=== PATIENT | male | born 1935 | race Caucasian/White ===

== ENCOUNTER 2018-01-14 12:20 | Observation (INO) | payer OTHER ==
[2018-01-14] MEDS ORDERED: levOFLOXACIN 500 MG/DEXTROSE 100 ML IV ONE (12:39)
[2018-01-14] MEDS ORDERED: LR 1,000 ML IV ONE (12:40)
[2018-01-14] MEDS ORDERED: LIDOCAINE 1% 2 ML INJ ID PRN (12:40)
--- NOTE | 2018-01-14 13:00 | PDHPUP ---
History & Physical Update H&P update statement: This history and physical update is based on an assessment of the patient which was completed after admission or registration (within 24 hours), but prior to the surgery/procedure. H&P update: no change in patient's condition since H&P completed
[2018-01-14] MEDS ORDERED: MIDAZOLAM 2 MG/2 ML VIAL IVP ONE (13:25)
--- NOTE | 2018-01-14 13:25 | PDANEPAE ---
<NolanKristin - Last Filed: 01/14/18 13:22> ANE History of Present Illness bladder masses, TURBT ANE Past Medical History - Cardiovascular History Hx Hypertension: Yes Hx Arrhythmias: Yes Hx Chest Pain: Yes Hx Coronary Artery / Peripheral Vascular Disease: Yes Hx CHF / Valvular Disease: No Hx Palpitations: No Cardiovascular History Comment: PPM for SSS. ascending aortic aneurysm - Pulmonary History Hx COPD: No Hx Asthma/Reactive Airway Disease: No Hx Recent Upper Respiratory Infection: No Hx Oxygen in Use at Home: No Hx Sleep Apnea: No Sleep Apnea Screening Result - Last Documented: Positive Pulmonary History Comment: ISABELLE triggers - Neurologic History Hx Cerebrovascular Accident: No Hx Seizures: No Hx Dementia: No - Endocrine History Hx Diabetes: No - Renal History Hx Renal Disorders: Yes Renal History Comment: BPH with obstruction - Liver History Hx Hepatic Disorders: No - Neurological & Psychiatric Hx Hx Neurological and Psychiatric Disorders: No - Cancer History Hx Cancer: Yes Cancer History Comment: MOHS procedure for basal cell spots - Congenital Disorder History Hx Congenital Disorders: No - GI History Hx Gastrointestinal Disorders: Yes Gastrointestinal History Comment: GERD - Other Health History Other Health History: wears glasses - Chronic Pain History Chronic Pain: No - Surgical History Prior Surgeries: left knee scope 1990. rectal abcess repair 1997. TURP 1998, 2007. MOHS surgery on face 1999. cardiac stent 2002, 2011. colonoscopy 2004, 2009. lap inguinal hernial repair 2012. bilateral cataract surgery 2016. pacemaker placement 2017 ANE Review of Systems Review of Systems: - Exercise capacity METS (RN): 4 METS - Pacemaker Pacemaker Type: Permanent Pacer/Defib Pacemaker [employer] Agent: [employer] Pacemaker Model: Assurity MRI Pacemaker Mode: DDDR Pacemaker Set Rate: 60 Date Pacemaker Last Checked: 10/21/2017 ANE Patient History - Allergies Allergies/Adverse Reactions: No Known Allergies Allergy (Verified 01/14/18 13:00) - Home Medications Home Medications: Aspirin [Aspirin 81mg (*)] 81 mg PO DAILY 01/08/18 [Last Taken 01/13/18] Atorvastatin Calcium [Lipitor 40 mg (*)] 80 mg PO HS 01/08/18 [Last Taken ] Carvedilol [Coreg (*)] 12.5 mg PO BIDMEAL 01/08/18 [Last Taken 01/13/18] Cetirizine [ZyrTEC 10 mg (*)] 10 mg PO DAILY PRN 01/08/18 [Last Taken 01/13/18] Fluticasone Nasal [Flonase Nasal [place] (RX)] 2 sprays NASAL DAILY 01/08/18 [ Last Taken Unknown] Losartan Potassium [Cozaar 25 mg (*)] 25 mg PO DAILY 01/08/18 [Last Taken ] Pantoprazole Sodium [Protonix 40mg (*)] 40 mg PO DAILY 01/08/18 [Last Taken ] Pregabalin [Lyrica 75mg (*)] 75 mg PO DAILY 01/08/18 [Last Taken 01/13/18] Ranitidine HCl [Zantac] 150 mg PO DAILY18 01/08/18 [Last Taken 01/13/18] Rivaroxaban [Xarelto 10mg (*)] 20 mg PO DAILY18 01/08/18 [Last Taken 01/10/18] Sildenafil Citrate [Viagra 50 MG (*)] 100 mg PO AD 01/08/18 [Last Taken 01/09/18 ] Silodosin [Rapaflo] 8 mg PO DAILY 01/13/18 [Last Taken 01/12/18] - Smoking Hx Smoking Status: Never smoked - Family Anes Hx Family Hx Anesthesia Complications: none ANE Labs/Vital Signs - Vital Signs Height: 190.5 cm Weight: 88.451 kg ANE Physical Exam - Airway Neck exam: decreased ROM Mallampati Score: Class 2 Mouth exam: normal dental/mouth exam - Pulmonary Pulmonary: no respiratory distress - Cardiovascular Cardiovascular: regular rate and rhythym - ASA Status ASA Status: III ANE Anesthesia Plan Anesthesia Plan: general endotracheal anesthesia <Danilo Wilkes - Last Filed: 01/14/18 16:14> ANE Review of Systems Review of Systems:
[2018-01-14] MEDS ORDERED: CARVEDILOL 6.25 MG TAB PO ONE (13:26)
--- NOTE | 2018-01-14 15:21 | POSTOPPROG ---
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
[2018-01-14] MEDS ORDERED: PROPOFOL 200 MG/20 ML VIAL ONE (16:37)
[2018-01-14] MEDS ORDERED: fentaNYL 100 MCG/2 ML INJ ONE (16:37)
[2018-01-14] MEDS ORDERED: LIDOCAINE 2% 2 ML INJ ONE (16:39)
[2018-01-14] MEDS ORDERED: MIDAZOLAM 2 MG/2 ML VIAL ONE (16:52)
[2018-01-14] MEDS ORDERED: ONDANSETRON 4 MG/2 ML VIAL ONE (17:21)
[2018-01-14] MEDS ORDERED: DEXAMETHASONE 4 MG/ML VIAL ONE (17:21)
[2018-01-14] MEDS ORDERED: NALOXONE HCL 0.4 MG/ML INJ IVP PRN (17:36)
[2018-01-14] MEDS ORDERED: HYDROmorphONE/DILAUDID 2 MG/ML INJ IVP PRN (17:36)
[2018-01-14] MEDS ORDERED: PROMETHAZINE HCL 25 MG/ML INJ IVP PRN ×2 (17:36→17:52)
[2018-01-14] MEDS ORDERED: fentaNYL 100 MCG/2 ML INJ IVP PRN (17:36)
--- NOTE | 2018-01-14 17:37 | POSTANESTH ---
Post Anesthetic Evaluation Cardiovascular Status: Normal, Stable Respiratory Status: Normal, Stable Level of Consciousness/Mental Status: Can Participate in Eval Pain Control: Adequate, Prn Tx Ordered Nausea/Vomiting Control: Adequate, Prn Tx Ordered Complications Possibly Related to Anesthesia: None Noted
[2018-01-14] MEDS ORDERED: LIDOCAINE 2% JELLY 5 ML TUBE TP PRN (17:52)
[2018-01-14] MEDS ORDERED: HYDROCODONE/APAP 5/325 TAB PO PRN (17:52)
[2018-01-14] MEDS ORDERED: ONDANSETRON 4 MG/2 ML VIAL IVP PRN (17:52)
[2018-01-14] MEDS ORDERED: HYDROmorphONE/DILAUDID 1 MG/ML INJ IVP PRN (17:52)
[2018-01-14] MEDS ORDERED: CETIRIZINE 10 MG TAB PO PRN (17:52)
[2018-01-14] MEDS ORDERED: RIVAROXABAN 20 MG TAB PO SCH (18:00)
[2018-01-14] MEDS ORDERED: D5W 1/2 NS 1,000 ML IV SCH (18:00)
[2018-01-14] MEDS: OPIUM/BELLADONNA ALKALO SUPP PR PRN (19:59)
[2018-01-14] MEDS: FAMOTIDINE 20 MG TAB PO SCH (20:22)
[2018-01-14] MEDS: CARVEDILOL 6.25 MG TAB PO SCH (20:23)
[2018-01-14] MEDS ORDERED: ATORVASTATIN CALCIUM 40 MG TAB PO SCH (21:00)
[2018-01-15] MEDS: OPIUM/BELLADONNA ALKALO SUPP PR PRN ×2 (03:22→18:07)
--- NOTE | 2018-01-15 04:44 | GOP ---
DATE OF OPERATION: 01/14/2018 SURGEON: Shyam Hernández MD ANESTHESIA: Laryngeal mask. PREOPERATIVE DIAGNOSIS: 1. Bladder neck contracture. 2. Benign prostatic hypertrophy. POSTOPERATIVE DIAGNOSIS: 1. Bladder neck contracture. 2. Benign prostatic hypertrophy. PROCEDURE PERFORMED: Transurethral resection of bladder neck contracture and prostate. FINDINGS: Bladder neck contracture and BPH, as noted above. SPECIMENS: Prostate tissue. ESTIMATED BLOOD LOSS: Minimal. INDICATIONS: This gentleman has been found to have a partially obstructing bladder neck contracture with some mild residual BPH following prior laser prostatectomy. He has opted to undergo surgical th erapy at this time. The indications for the procedures as well as potential risks and complications were discussed with the patient preoperatively. He appeared to understand, his questions were answer ed, and he wished to proceed. Written informed surgical consent was thereafter obtained. DESCRIPTION OF PROCEDURE: The patient was brought to the operating room and administered laryngeal m ask anesthesia. He was carefully placed in the dorsal lithotomy position on the cystoscopic table ut ilizing Obed stirrups. The genital area was sterilely prepped with Betadine scrub and paint, and dr aped in usual sterile fashion. Cystoscopy was performed with a 30-degree lens through a 22-Polish [facility]. Anterior urethra revealed no abnormalities. Posterior urethra revealed a mild to moderate jer dder neck contracture with BPH. Examination of bladder revealed a moderately trabeculated pattern, b ut without any areas of abnormal erythema, tumors, or foreign bodies. Ureteral orifices were normal in regard to shape and position along the trigone. I then inserted the 24-Polish resectoscopic sheath with obturator, followed by resectoscope in a standard loop. Using normal saline continuous passive flow, I then systematically resected the bladder neck and residual prostate tissue circumferentially until the prostatic channel and bladder neck were widely patent. Hemostasis was maintained with the loop as well as a button clinton ctrode as necessary. I resected to capsular fibers circumferentially. All of the tissue was evacuat ed from the bladder. At the conclusion of the case, the prostatic fossa was widely patent, ureteral orifices were preserved, and no resection had taken place distal to the verumontanum. The instrument s were removed and a 20-Polish 3-way Youssef catheter inserted with the use of a catheter guide. 35 cc of sterile water was placed in the balloon. The catheter irrigated manually and the return was near ly clear. The catheter was connected to bag drainage as well as continuous irrigation with normal sa line. He was awakened, transferred to his bed, and then taken to the recovery room. He tolerated th e procedure well overall. COMPLICATIONS: None. DISPOSITION: He was transferred to the recovery room in stable condition. He will be admitted overn [facility] for continuous irrigation. /[id number]/MODL
[2018-01-15] MEDS: CARVEDILOL 6.25 MG TAB PO SCH ×2 (08:50→18:24)
[2018-01-15] MEDS: FAMOTIDINE 20 MG TAB PO SCH (08:50)
[2018-01-15] MEDS ORDERED: FLUTICASONE NASAL 120 SPRAYS/16 GM MDI EACHNARE SCH (09:00)
[2018-01-15] MEDS ORDERED: LOSARTAN POTASSIUM 25 MG TAB PO SCH (09:00)
[2018-01-15] MEDS ORDERED: PANTOPRAZOLE SODIUM 40 MG TAB PO SCH (09:00)
[2018-01-15] MEDS ORDERED: PREGABALIN 75 MG CAP PO SCH (09:00)
--- NOTE | 2018-01-15 09:07 | SOAPPROG ---
SOAP Progress Note Assessment/Plan: Assessment: POD 1 s/p TURBNC & TURP - stable. Plan: d/c home after voiding trial. Subjective: No complaints Objective: Vital Signs Temp Pulse Resp BP Pulse Ox 37 C 61 14 113/67 94 01/15/18 08:00 01/15/18 08:50 01/15/18 08:00 01/15/18 08:51 01/15/18 08:00 01/14/18 01/15/18 01/16/18 05:59 05:59 05:59 Intake Total 1805 Output Total 1250 Balance 555 Physical Exam - Physical Exam General Appearance: WD/WN, alert, no apparent distress Male Genitalia: other (urine nearly clear on low-rate CBI) Neuro/Psych: alert, normal mood/affect ICD10 Worksheet Patient Problems: Problems Problem Status Onset BPH (benign prostatic hyperplasia) Acute Bladder neck contracture Acute - ICD10 Problem Qualifiers (1) Bladder neck contracture (2) BPH (benign prostatic hyperplasia)
--- NOTE | 2018-01-15 12:32 | ASDISCHSUM ---
Discharge Information Plan Status:Home with No Needs Medically Cleared to Leave:01/14/2018 Discharge Date:01/14/2018 CM D/C Disposition:Home, Routine, Self-Care ADT D/C Disposition:Home, Routine, Self-Care Projected Discharge Date:01/14/2018 Transportation at D/C:Family Discharge Delay Reason: Follow-Up Date:01/14/2018 Discharge Slot: Final Diagnosis:Urinary Obstruction, BPH Placement Information Patient Contact Information Contact Name:KAITY Relationship: Address:[address] City:[place] Alternate Phone: [facility]/Zip Code:[place] [address] Email: Financial Information Financial Class:Medicare Advantage Plans Primary Plan Desc:[facility] Primary Plan Number:[id number] Secondary Plan Desc: Secondary Plan Number: Assessment Information LACE LACE Length of stay for Answers: Less than 1 day current admission Acuity / Level of Answers: No Care: Did the patient have an inpatient admission? Comorbidities - select Answers: Coronary Artery Disease all that apply Other Notes: HTN; GERD # of Emergency department Answers: 0 visits in the last 6 months Score: 3 Date Signed: 01/15/2018 12:31 PM Electronically Signed By:Teresa Miller Case Management Discharge Plan Note Case Management Discharge Discharge Order Complete? Answers: Yes Patient to Obtain Answers: via Family Medications Transportation Arranged Answers: Family/Friends Transport will Pick (Date 01/15/2018 12:00 AM & Time) Family Notified Answers: Yes Notes: in the room Discharge Comments Notes: Pt admitted for scheduled TURP/TURBNC. Lives independently with Magdalena. Pt to discharge home independently and both her and confirm this is appropriate. RN concurred as well. No CM needs noted at this time. CM available should needs change. Date Signed: 01/15/2018 12:30 PM Electronically Signed By:Teresa Miller Intervention Information
[2018-01-15 18:10] VITALS: BP 141/81
== END 2018-01-15 19:30 | disposition home or self-care (01) ==
LOC: F1N 12:20
PROVIDERS: ADMIT Specialist; ATTEND Specialist
DX: N32.0 Bladder-neck obstruction (principal); N40.1 Benign prostatic hyperplasia with lower urinary tract symptoms; R35.1 Nocturia; R39.198 Other difficulties with micturition; R33.9 Retention of urine, unspecified; K21.9 Gastro-esophageal reflux disease without esophagitis; I25.10 Atherosclerotic heart disease of native coronary artery without angina pectoris; I10 Essential (primary) hypertension; E78.5 Hyperlipidemia, unspecified; G62.9 Polyneuropathy, unspecified; I49.5 Sick sinus syndrome; N52.9 Male erectile dysfunction, unspecified; Z79.82 Long term (current) use of aspirin; Z82.49 Family history of ischemic heart disease and other diseases of the circulatory system; Z95.0 Presence of cardiac pacemaker
CPT/HCPCS: 51702; 52640; G0378; J1100; J1956; J2250; J2405; J2550; J2704; J3010